=== PATIENT | male | born 1950 | race Caucasian/White ===

== ENCOUNTER 2022-02-17 07:17 | Emergency (ER) | payer MEDICARE, OTHER ==
[2022-02-17] MEDS ORDERED: Piperacillin/Tazobactam 4.5 GM in Sodium Chloride 0.9% 100 ML IV ONE (07:34)
[2022-02-17] MEDS ORDERED: Lactated Ringers 1,000 ML IV STA ×2 (07:34)
[2022-02-17] MEDS ORDERED: Morphine 4 MG/ML VIAL IVPUSH ONE ×2 (07:40→09:04)
[2022-02-17] MEDS ORDERED: VANCOmycin 1.75 GM/350 ML 1.75 GM in Premix Bag 1 BAG IV ONE (08:00)
[2022-02-17 08:21] LABS: BLOOD UREA NITROGEN,BUN 25 mg/dL (7.0-18.0); CARBON DIOXIDE,CO2 20.7 mmol/L (21.0-32.0); CHLORIDE,CL 99 mmol/L (98-107); GLUCOSE RANDOM 144 mg/dL (74-106); POTASSIUM,K 4.1 mmol/L (3.5-5.1); SODIUM,NA 133 mmol/L (136-148)
[2022-02-17] MEDS ORDERED: Iopamidol 755 MG/ML 500 ML Multipack Bottle IVPUSH STA (13:51)
== END 2022-02-17 12:05 ==
LOC: MW.ED 07:17
DX: L03.116 Cellulitis of left lower limb (principal); R65.20 Severe sepsis without septic shock; S70.12XA Contusion of left thigh, initial encounter; L97.921 Non-pressure chronic ulcer of unspecified part of left lower leg limited to breakdown of skin; E87.2 Acidosis; Z79.899 Other long term (current) drug therapy; Z79.82 Long term (current) use of aspirin; Z91.030 Bee allergy status; Z20.822 Contact with and (suspected) exposure to COVID-19; W20.8XXA Other cause of strike by thrown, projected or falling object, initial encounter
CPT/HCPCS: 36415; 73701; 80053; 81001; 82550; 83605; 85025; 85610; 85652; 86140; 87040; 96365; 96366; 96368; 96375; 99291; J2270; J2543; J3370; J7120; Q9967; U0002